=== PATIENT | female | born 1980 | race Hispanic/Latino ===

== ENCOUNTER 2018-01-21 20:31 | Inpatient (IN) | payer BC ==
[~2018-01-21] VITALS: Ht 157.5 cm; Wt 84.4 kg
[2018-01-21 21:03] LABS: APPEARANCE,URINE Cloudy (CLEAR); BILIRUBIN,URINE Negative (NEGATIVE); COLOR,URINE Yellow (YELLOW); GLUCOSE, URINE (UA) Negative (NEGATIVE); KETONES,URINE 15 mg/dL (NEGATIVE); LEUKOCYTE ESTERASE ,URINE Trace (NEGATIVE); NITRATE,URINE Negative (NEGATIVE); OCCULT BLOOD,URINE Moderate (NEGATIVE); PROTEIN,URINE Negative (NEGATIVE); UROBILINOGEN,URINE 0.2 mg/dL (0.2-1.0)
[2018-01-21 21:12] LABS: BACTERIA,URINE Few /HPF (None Seen)
[2018-01-21 21:13] LABS: AMORPHOUS SEDIMENT,UR Few /LPF (None Seen); MUCUS,URINE Few LPF (None Seen)
[2018-01-21] MEDS ORDERED: MAGNESIUM 4GM PREMIX 100ML 100 ML IV ONE (21:28)
[2018-01-21] MEDS ORDERED: MAGNESIUM SULFATE 1,000 ML IV ONE (21:28)
[2018-01-21] MEDS ORDERED: MAGNESIUM 4GM PREMIX 100ML 100 ML IV PRN (21:30)
[2018-01-21] MEDS ORDERED: CALCIUM GLUCONATE 1 GM/10 ML VIAL IVP PRN (21:30)
[2018-01-21] MEDS: AMPICILLIN 2GM+NS 100ML 100 ML IV SCH (22:15)
[2018-01-21] MEDS ORDERED: DEXAMETHASONE SOD PHOSPHATE 4 MG/ML 1ML VIAL ONE (22:31)
[2018-01-21] MEDS: LACTATED RINGERS 1000ML 1,000 ML IV SCH ×2 (22:49→23:50)
[2018-01-21 23:18] LABS: HEMATOCRIT 34.8 % (36-48); MEAN CORPUSCULAR HEMOGLOBIN 30.7 pg (27.0-33.0); MEAN CORPUSCULAR HGB CONC 33.1 g/dL (32.0-36.0); MEAN CORPUSCULAR VOLUME 92.7 fL (79-99); PLATELET COUNT (AUTO) 342 K/uL (130-400); RED BLOOD CELL COUNT(AUTO) 3.75 MIL/uL (4.00-5.50); RED CELL DISTRIBUTION WIDTH 14.6 % (11.0-15.5); WHITE BLOOD COUNT (AUTO) 11.8 K/uL (4.8-10.8)
[2018-01-22] MEDS: DEXAMETHASONE SOD PHOSPHATE 4 MG/ML 1ML VIAL IM SCH ×3 (04:15→16:32)
[2018-01-22] MEDS: AMPICILLIN 2GM+NS 100ML 100 ML IV SCH ×4 (04:15→22:24)
[2018-01-22] MEDS: MAGNESIUM SULFATE 1,000 ML IV PRN (16:45)
[2018-01-22] MEDS: ACETAMINOPHEN 325 MG TAB PO PRN (19:33)
[2018-01-22] MEDS ORDERED: CALDOLOR 800MG+NS 250ML 250 ML IV PRN (20:45)
[2018-01-22] MEDS ORDERED: CEFAZOLIN SODIUM 1 GM VIAL IVP PRN (20:45)
[2018-01-22] MEDS ORDERED: LACTATED RINGERS 1000ML 1,000 ML IV SCH (20:45)
[2018-01-23] MEDS: LACTATED RINGERS 1000ML 1,000 ML IV SCH (00:25)
[2018-01-23] MEDS: AMPICILLIN 2GM+NS 100ML 100 ML IV SCH ×2 (04:34→21:30)
[2018-01-23 08:21] LABS: HEPATITIS Bs ANTIGEN SCREEN P Negative (Negative)
[2018-01-23] MEDS ORDERED: BERACTANT 200MG/8ML IH ONE (09:46)
[2018-01-23] MEDS ORDERED: CEFAZOLIN SODIUM 1 GM VIAL IVP ONE (10:00)
[2018-01-23] MEDS ORDERED: DEXAMETHASONE SOD PHOSPHATE 10MG/ML 1ML VIAL ONE (10:35)
[2018-01-23] MEDS ORDERED: OXYTOCIN 10 UNIT/1ML 10ML VIAL ONE (10:35)
[2018-01-23] MEDS ORDERED: ONDANSETRON HCL 4 MG/2 ML VIAL ONE (10:35)
[2018-01-23] MEDS ORDERED: OXYTOCIN-LR 20 UNITS/1000 ML 1,000 ML IV PRN (10:55)
[2018-01-23] MEDS ORDERED: PROMETHAZINE HCL 25 MG/ML 1ML AMPULE IM PRN ×2 (11:00→16:45)
[2018-01-23] MEDS ORDERED: SODIUM CHLORIDE 0.9% 10 ML VIAL IVP PRN (11:00)
[2018-01-23] MEDS: MEPERIDINE-PF 75 MG/ML SYG IM PRN (12:59)
[2018-01-23] MEDS ORDERED: LACTATED RINGERS 1000ML 1,000 ML IV ONE (13:02)
[2018-01-23] MEDS ORDERED: OXYTOCIN 10 USP UNITS/ML ONE (13:02)
[2018-01-23 13:50] VITALS: BP 94/57
[2018-01-23 15:48] VITALS: BP 91/47
[2018-01-23] MEDS ORDERED: MORPHINE SULFATE 2 MG/ML 1ML SYG IVP PRN (16:45)
[2018-01-23] MEDS ORDERED: DiphenhydrAMINE HCL 50 MG/ML VIAL IVP PRN (16:45)
[2018-01-23] MEDS ORDERED: ONDANSETRON HCL 4 MG/2 ML VIAL IVP PRN ×2 (16:45)
[2018-01-23] MEDS ORDERED: HYDROCODONE/ACETAMINOPHEN 5/325 MG TAB PO PRN ×2 (16:45)
[2018-01-23] MEDS ORDERED: METOCLOPRAMIDE 10 MG/2 ML VIAL IVP PRN (16:45)
[2018-01-23] MEDS ORDERED: EPHEDRINE SULFATE 50 MG/ML AMPULE IVP PRN (16:45)
[2018-01-23] MEDS ORDERED: NALOXONE HCL 0.4 MG/1 ML ML IVP PRN ×2 (16:45)
[2018-01-23] MEDS ORDERED: ONDANSETRON HCL 4 MG/2 ML 8 MG in SODIUM CHLORIDE 0.9% 50 ML IVP NR (16:45)
[2018-01-23] MEDS: DEXTROSE 5 %-0.45 % NACL 1,000 ML IV PRN (19:56)
[2018-01-23] MEDS: CALDOLOR 800MG+NS 250ML 250 ML IV SCH (19:56)
[2018-01-23 20:03] VITALS: BP 85/46
[2018-01-23 23:14] VITALS: BP 82/50
[2018-01-24] VITALS (7 sets, daily range): BP systolic 101–114; BP diastolic 64–78
[2018-01-24] MEDS: MEPERIDINE-PF 75 MG/ML SYG IM PRN (00:15)
[2018-01-24] MEDS: AMPICILLIN 2GM+NS 100ML 100 ML IV SCH (03:30)
[2018-01-24] MEDS: CALDOLOR 800MG+NS 250ML 250 ML IV SCH (03:44)
[2018-01-24] MEDS: DEXTROSE 5 %-0.45 % NACL 1,000 ML IV PRN (03:45)
[2018-01-24] MEDS: DEXAMETHASONE SOD PHOSPHATE 4 MG/ML 1ML VIAL IM SCH ×2 (06:00)
[2018-01-24 07:15] LABS: HEMATOCRIT 29.4 % (36-48); MEAN CORPUSCULAR HEMOGLOBIN 30.6 pg (27.0-33.0); MEAN CORPUSCULAR HGB CONC 32.8 g/dL (32.0-36.0); MEAN CORPUSCULAR VOLUME 93.2 fL (79-99); PLATELET COUNT (AUTO) 270 K/uL (130-400); RED BLOOD CELL COUNT(AUTO) 3.16 MIL/uL (4.00-5.50); RED CELL DISTRIBUTION WIDTH 14.9 % (11.0-15.5)
[2018-01-24] MEDS ORDERED: SODIUM CHLORIDE 0.9% 10 ML VIAL IVP PRN (09:00)
[2018-01-24] MEDS ORDERED: ACETAMINOPHEN EXTRA STRENGTH 500 MG TABLET PO PRN (09:00)
[2018-01-24] MEDS ORDERED: LANOLIN 30GM OINTMENT TP PRN (09:00)
[2018-01-24] MEDS ORDERED: DIPH,PERTUSS(ACELL),TET VAC/PF 0.5 ML VIAL IM SCH (09:00)
[2018-01-24] MEDS ORDERED: BISACODYL 10 MG SUPP.RECT RC PRN (09:00)
[2018-01-24] MEDS ORDERED: HYDROCODONE/ACETAMINOPHEN 5/325 MG TAB PO PRN (09:00)
[2018-01-24] MEDS: SIMETHICONE 80 MG TAB.CHEW PO PRN ×2 (10:10→20:29)
[2018-01-24] MEDS: DOCUSATE SODIUM 100 MG CAP PO SCH ×2 (10:10→20:29)
[2018-01-24] MEDS: ACETAMINOPHEN-CODEINE 300/30MG TAB PO PRN ×2 (10:36→20:29)
[2018-01-24] MEDS: IBUPROFEN 800 MG TAB PO SCH ×2 (12:11→21:05)
[2018-01-25] MEDS: IBUPROFEN 800 MG TAB PO SCH ×3 (03:56→18:45)
[2018-01-25] MEDS: ACETAMINOPHEN-CODEINE 300/30MG TAB PO PRN ×5 (03:57→23:52)
[2018-01-25 04:02] VITALS: BP 116/70
[2018-01-25 07:07] LABS: HEMATOCRIT 28.6 % (36-48); MEAN CORPUSCULAR HEMOGLOBIN 32.2 pg (27.0-33.0); MEAN CORPUSCULAR HGB CONC 34.5 g/dL (32.0-36.0); MEAN CORPUSCULAR VOLUME 93.2 fL (79-99); PLATELET COUNT (AUTO) 261 K/uL (130-400); RED BLOOD CELL COUNT(AUTO) 3.07 MIL/uL (4.00-5.50); RED CELL DISTRIBUTION WIDTH 14.7 % (11.0-15.5); WHITE BLOOD COUNT (AUTO) 8.8 K/uL (4.8-10.8)
[2018-01-25 07:34] VITALS: BP 104/51
[2018-01-25] MEDS: SIMETHICONE 80 MG TAB.CHEW PO PRN ×4 (08:05→21:28)
[2018-01-25] MEDS: DOCUSATE SODIUM 100 MG CAP PO SCH ×2 (08:05→21:27)
[2018-01-25 11:24] VITALS: BP 121/72
[2018-01-25 15:49] VITALS: BP 116/78
[2018-01-25 20:20] VITALS: BP 101/66
[2018-01-25 23:47] VITALS: BP 120/74
[2018-01-26] MEDS: IBUPROFEN 800 MG TAB PO SCH ×2 (02:49→11:28)
[2018-01-26 03:51] VITALS: BP 117/80
[2018-01-26] MEDS: ACETAMINOPHEN-CODEINE 300/30MG TAB PO PRN (03:58)
[2018-01-26 07:25] VITALS: BP 100/70
[2018-01-26] MEDS: DOCUSATE SODIUM 100 MG CAP PO SCH (09:22)
[2018-01-26] MEDS: SIMETHICONE 80 MG TAB.CHEW PO PRN (09:23)
[2018-01-26] MEDS: ACETAMINOPHEN 325 MG TAB PO PRN (09:24)
[2018-01-26] MEDS: AMPICILLIN 2GM+NS 100ML 100 ML IV SCH (09:30)
[2018-01-26] MEDS: MAGNESIUM SULFATE 1,000 ML IV PRN (10:22)
[2018-01-26 11:30] VITALS: BP 134/79
[2018-01-26 15:22] VITALS: BP 111/73
== END 2018-01-26 16:30 | disposition home or self-care (01) | DRG 765 ==
LOC: EDH 20:31 → LDH 20:40 → OBSVTOIN 20:40 → WSH 01-23 13:54
PROVIDERS: ADMIT Obstetrics & Gynecology; ATTEND Obstetrics & Gynecology
PROC: 0UN90ZZ Release Uterus, Open Approach (ICD-10-PCS; 2018-01-23)
PROC: 10D00Z1 Extraction of Products of Conception, Low, Open Approach (ICD-10-PCS; principal; 2018-01-23 09:46)
PROC: 3E0234Z Introduction of Serum, Toxoid and Vaccine into Muscle, Percutaneous Approach (ICD-10-PCS; 2018-01-24)
DX: O32.2XX0 Maternal care for transverse and oblique lie, not applicable or unspecified (principal); O60.14X0 Preterm labor third trimester with preterm delivery third trimester, not applicable or unspecified; O34.211 Maternal care for low transverse scar from previous cesarean delivery; K66.0 Peritoneal adhesions (postprocedural) (postinfection); O99.89 Other specified diseases and conditions complicating pregnancy, childbirth and the puerperium; Z37.0 Single live birth; Z3A.33 33 weeks gestation of pregnancy; Z23 Encounter for immunization
CPT/HCPCS: 36415; 59510; 76805; 81001; 82120; 83735; 85027; 86592; 86850; 86900; 86901; 87340; 88307; 90715; A4314; A4344; A4606; J0290; J0690; J1100; J1741; J2175; J2405; J2550; J2590; J3475; J3490; J7120

== ENCOUNTER → 2022-12-24 | Outpatient (CLI) | payer BC | END | disposition home or self-care (01) | LOC: RAH 12:53 | PROVIDERS: ATTEND Family Medicine Sports Medicine | DX: R13.13 Dysphagia, pharyngeal phase (principal); K21.9 Gastro-esophageal reflux disease without esophagitis | CPT/HCPCS: 74230; 92611 ==